=== PATIENT | female | born 1980 | race Caucasian/White ===

== ENCOUNTER 2021-03-14 16:24 | Outpatient (RCR) | payer BC, SELFPAY | END 2021-06-12 23:59 | disposition home or self-care (01) | LOC: ANHLAB 16:24 | PROVIDERS: PCP Emergency Medicine; Visit Provider Obstetrics & Gynecology | DX: O02.1 Missed abortion (principal); Z3A.00 Weeks of gestation of pregnancy not specified | CPT/HCPCS: 36415; 85461 ==

== ENCOUNTER → 2021-09-24 15:54 | Outpatient (CLI) | payer BC, SELFPAY ==
--- NOTE | ~2021-09-24 | MM_ITS ---
EXAMINATION: MM screening zhen BI w yesenia HISTORY: Screening TECHNIQUE: Craniocaudal and mediolateral oblique 3-D tomosynthesis images were obtained and synthetic 2-D images were generated. CAD analysis was submitted and interpreted. COMPARISON: No prior mammogram is available for comparison at this institution. BREAST PARENCHYMAL COMPOSITION: There are scattered areas of fibroglandular density. FINDINGS: There is a cluster of calcifications in the mid outer aspect of the right breast, middle th ird. There are no suspicious masses or architectural distortion in either breast. No evidence for mal ignancy in the left breast. IMPRESSION: 1. Clustered indeterminate right breast calcifications. 2. Magnification views are recommended. BI-RADS Category 0: Incomplete: Needs additional imaging evaluation. Reviewed, dictated and finalized at location A. WRAPPER
== END ==
PROVIDERS: PCP Emergency Medicine; Visit Provider Emergency Medicine
DX: Z12.31 Encounter for screening mammogram for malignant neoplasm of breast (principal); R92.8 Other abnormal and inconclusive findings on diagnostic imaging of breast
CPT/HCPCS: 77063; 77067

== ENCOUNTER → 2021-11-13 09:15 | Outpatient (CLI) | payer BC, SELFPAY ==
--- NOTE | ~2021-11-13 | MM_ITS ---
EXAMINATION: MM diagnostic mammo unilat RT HISTORY: Indeterminate right breast calcifications on screening mammogram TECHNIQUE: Magnification views of the right breast were performed and synthetic 2-D images were gener ated. CAD analysis was submitted and interpreted. COMPARISON: 10/04/2021 BREAST PARENCHYMAL COMPOSITION: There are scattered areas of fibroglandular density. FINDINGS: There are grouped lucent centered calcifications in the middle third of the lower-outer mookie ast at the 8:00 location 7 cm from the nipple. No associated mass or architectural distortion are vipul ntified. IMPRESSION: 1. Right breast calcifications with a benign morphology. 2. Recommend routine screening mammography in one year. BI-RADS Category 2: Benign finding(s). Reviewed, dictated and finalized at location A. ARA TARAKA
== END ==
PROVIDERS: PCP Emergency Medicine; Visit Provider Emergency Medicine
DX: R92.2 Inconclusive mammogram (principal)
CPT/HCPCS: 77065

== ENCOUNTER → 2023-03-21 16:05 | Outpatient (CLI) | payer BC, SELFPAY ==
--- NOTE | ~2023-03-21 | MM_ITS ---
EXAMINATION: MM screening zhen BI w yesenia HISTORY: Screening mammogram TECHNIQUE: Craniocaudal and mediolateral oblique 3-D tomosynthesis images were obtained and synthetic 2-D images were generated. CAD analysis was submitted and interpreted. COMPARISON: 11/13/2021 diagnostic right mammogram 09/24/2021ilateral screening mammogram BREAST PARENCHYMAL COMPOSITION: There are scattered areas of fibroglandular density. FINDINGS: There are scattered bilateral benign calcifications. There is no evidence of suspicious mas s, calcification, or architectural distortion to suggest malignancy in either breast. There has been no suspicious interval change. IMPRESSION: 1. No mammographic evidence of malignancy. 2. Recommend routine screening mammography in one year. BI-RADS Category 2: Benign finding(s). Reviewed, dictated and finalized at location A.
== END ==
PROVIDERS: PCP Emergency Medicine; Visit Provider Emergency Medicine
DX: Z12.31 Encounter for screening mammogram for malignant neoplasm of breast (principal)
CPT/HCPCS: 77063; 77067

== ENCOUNTER 2024-06-10 11:39 | Outpatient (CLI) | payer BC, SELFPAY ==
--- NOTE | ~2024-06-10 | MM_ITS ---
EXAMINATION: MM screening zhen BI w yesenia HISTORY: Screening TECHNIQUE: Craniocaudal and mediolateral oblique 3-D tomosynthesis images were obtained and synthetic 2-D images were generated. CAD analysis was submitted and interpreted. COMPARISON: Comparison to multiple prior studies sequentially, with oldest reviewed study dated 03/2021. BREAST PARENCHYMAL COMPOSITION: Not dense: There are scattered areas of fibroglandular density. FINDINGS: There is no evidence of suspicious mass, calcification, or architectural distortion to sugg est malignancy in either breast. There has been no suspicious interval change. IMPRESSION: 1. No mammographic evidence of malignancy. 2. Recommend routine screening mammography in one year. BI-RADS Category 1: Negative Reviewed, dictated and finalized at location B.
== END 2024-06-10 11:40 ==
LOC: MICIMG 11:40
PROVIDERS: PCP Emergency Medicine; Visit Provider Emergency Medicine
DX: Z12.31 Encounter for screening mammogram for malignant neoplasm of breast (principal)
CPT/HCPCS: 77063; 77067

== ENCOUNTER 2024-11-10 09:56 | Outpatient (CLI) | payer BC, SELFPAY ==
--- NOTE | ~2024-11-10 | MR_ITS ---
EXAMINATION: MR knee LT wo con DATE: 11/10/2024 10:55 INDICATION: Left knee pain TECHNIQUE: Magnetic resonance imaging (MRI) of the left knee was performed without intravenous contra st. Sequences included coronal PD-weighted FSE, coronal PD-weighted FS FSE, sagittal T2-weighted FSE , sagittal PD-weighted FS FSE and axial PD weighted fat saturated FSE. COMPARISON: None. FINDINGS: Medial compartment: Medial meniscus is normal. Partial-thickness chondral ulceration and fissuring without degenerative s ubchondral changes at the anterior weightbearing medial femoral condyle. Lateral compartment: Tear, likely complex, at the lateral half of the posterior horn of the medial meniscus. Deep chondral ulceration and fissuring along the anterior weightbearing medial femoral condyle and the medial side of the lateral tibial plateau. Patellofemoral compartment: Extensive full or near full-thickness cartilage loss throughout the lateral patellar facet and signif icant portion of the lateral trochlea with some secondary remodeling of the articular cortices and sc attered small foci of subarticular edema-like signal change. Less severe partial thickness chondral u lceration and fissuring without degenerative subchondral changes at the medial side of the patellofem oral compartment. Ligaments and tendons: Anterior and posterior cruciate ligaments are normal. The medial collateral ligament and fibular la ateral ligament complex are normal. Patellar tendon is normal. Mild tendinopathy without tear at the distal quadriceps tendon. The visualized medial and lateral hamstring tendons as well as the iliotibi al band are normal. Fluid: Moderate-sized knee joint effusion with associated moderate synovitis at the suprapatellar pouch and along the lateral aspect of the infrapatellar fat pad. No loose osteochondral bodies identified. Osseous/other: There is prominent marrow edema at the posterolateral aspect of the lateral tibial plateau to alongsi de its articulation with the proximal fibula with mild associated osteoarthritis. This also underlies the footplate of the posterior segment of the fibular head which suggests possibility of an avulsive injury although the ligament appears grossly intact. No fracture or pathologic marrow replacing proc ess. IMPRESSION: 1. Tear, likely complex of the posterior horn of the lateral meniscus. 2. Tricompartmental osteoarthritis, severe with extensive high-grade chondral malacia in the patellof emoral compartment and mild with regions of moderate grade chondromalacia in the medial and lateral c ompartments. 3. Prominent marrow edema at the posterolateral aspect of the proximal tibia adjacent to the proximal tibia fibular articulation which could be related to osteoarthritis, bone contusion or reactive kaleb a related to avulsive injury of the intact appearing posterior ligament of the fibular head. 4. Likely reactive moderate sized knee joint effusion. Reviewed, dictated and finalized at location A. LRY CUTTER IMPRESSION: 1. Tear, likely complex of the posterior horn of the lateral meniscus. 2. Tricompartmental osteoarthritis, severe with extensive high-grade chondral m alacia in the patellofemoral compartment and mild with regions of moderate grad e chondromalacia in the medial and lateral compartments. 3. Prominent marrow edema at the posterolateral aspect of the proximal tibia ad jacent to the proximal tibia fibular articulation which could be related to ost eoarthritis, bone contusion or reactive edema related to avulsive injury of the intact appearing posterior ligament of the fibular head. 4. Likely reactive moderate sized knee joint effusion.
== END 2024-11-10 09:57 | disposition home or self-care (01) ==
LOC: GOSHIMG 09:56
PROVIDERS: PCP Emergency Medicine; Visit Provider Emergency Medicine
DX: S83.282A Other tear of lateral meniscus, current injury, left knee, initial encounter (principal); X58.XXXA Exposure to other specified factors, initial encounter; M17.12 Unilateral primary osteoarthritis, left knee
CPT/HCPCS: 73721

== ENCOUNTER 2025-06-13 12:48 | Outpatient (CLI) | payer BC, SELFPAY ==
--- NOTE | ~2025-06-13 | MM_ITS ---
EXAMINATION: MM screening zhen BI w yesenia HISTORY: Screening TECHNIQUE: Craniocaudal and mediolateral oblique 3-D tomosynthesis images were obtained and synthetic 2-D images were generated. CAD analysis was submitted and interpreted. COMPARISON: Comparison to multiple prior studies sequentially, with oldest reviewed study dated 09/24/2021. BREAST PARENCHYMAL COMPOSITION: There are scattered areas of fibroglandular density. FINDINGS: There is no evidence of suspicious mass, calcification, or architectural distortion to suggest malignancy in either breast. Scattered benign-appearing calcifications are present. Bilateral areas of distortion related to prior surgery noted are unchanged. IMPRESSION: 1. No mammographic evidence of malignancy. 2. Recommend routine screening mammography in one year. BI-RADS Category 2: Benign finding(s). Reviewed, dictated and finalized at location B.
== END 2025-06-13 12:49 | disposition home or self-care (01) ==
LOC: MICIMG 12:52
PROVIDERS: PCP Emergency Medicine; Visit Provider Emergency Medicine
DX: Z12.31 Encounter for screening mammogram for malignant neoplasm of breast (principal)
CPT/HCPCS: 77063; 77067